=== PATIENT | male | born 1980 | race Caucasian/White ===

== ENCOUNTER 2023-05-04 19:36 | Emergency (ER) | payer BC, SELFPAY ==
[2023-05-04 19:37] VITALS: BP 135/81; PULSE 94; RESP 18; TEMP 36.6; O2SAT 99; BMI 24.0
--- NOTE | 2023-05-04 20:04 | RAD_ITS ---
STUDY: X-RAY - UNILATERAL RIBS ( LEFT ) WITH CHEST REASON FOR EXAM: Male, 43 years old. pain TECHNIQUE - RIBS: 3 view(s) of the ribs. TECHNIQUE - CHEST: Single PA view of the chest. COMPARISON: None. FINDINGS - RIBS: Normal visualized ribs without a demonstrated fracture. FINDINGS - CHEST: The lungs are clear and expanded. There is no demonstrated pleural abnormality. Normal size heart. Normal mediastinum and adis. Normal visualized pulmonary arteries. Normal visualized aortic arch and descending thoracic aorta. There is a dextroscoliosis of the thoracic spine. Normal visualized ribs, clavicles, and shoulders. There is no demonstrated abnormality of the visualized soft tissue structures of the upper abdomen. RAD/Ribs Uni Min 3V w/PA Chest IMPRESSION: RIBS: Normal x-ray examination of the ribs. CHEST: Normal x-ray examination of the chest. Electronically Signed: Cruz Alicea MD at 20:47 EDT ,
--- NOTE | 2023-05-04 20:13 | RAD_ITS ---
STUDY: X-RAY - LEFT SHOULDER REASON FOR EXAM: Male, 43 years old. pain TECHNIQUE: 4 view(s) of the shoulder. COMPARISON: None. FINDINGS: Normal glenohumeral articulation. Normal acromioclavicular joint. Normal acromion. Normal humeral head and visualized proximal humerus. The soft tissue structures are unremarkable. Normal visualized pulmonary apex. RAD/Shoulder min 2 Views IMPRESSION: Normal x-ray examination of the shoulder. Electronically Signed: Cruz Alicea MD at 20:45 EDT ,
--- NOTE | 2023-05-04 21:12 | EDS_ITS ---
HPI History of Present Illness Chief Complaint: Upper Extremity Injury Informant: patient and spouse/S.O. Narrative Narrative: Ambidextrous 43-year-old male states he has been having left anterior shoulder pain for the past month and a half, he was seen in an ER and prescribed naproxen about 3 or so weeks ago, he took it for 10 days and it really helped, and a week or so later his pain started gradually worsening again to the point where it was before. He denies any new symptoms. No numbness or tingling. Denies any injury, it hurts to lie his left shoulder, and he states he had a rotator cuff tear in the past, this was tender 15 years ago in the same shoulder verified by MRI, that was treated by cortisone injection by his PCP at that time. 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 He states it currently hurts to move especially with left upper extremity overhead movements, as well as with coughing but not simply with taking a deep breath. Denies any history of DVT or PE, no recent leg pain or swelling, no travel out of the region or recent hospitalization or surgery. PFSH PFSH no medical history Home Medications meloxicam 15 mg tablet 15 mg PO DAILY #30 tabs 05/04/23 [Rx Last Taken Unknown] Allergy/AdvReac Type Severity Reaction Status Date / Time No Known Allergies Allergy Verified 05/04/23 19:37 Social History Smoking Status: Current every day smoker tobacco type: cigarettes ROS ROS ED Constitutional Constitutional ED: Denies chills or fever(s) Musculoskeletal Musculoskeletal: Reports extremity pain; Denies neck pain Integumentary Denies Abrasions, rash or wounds Neurologic Neurologic: Denies paresthesias or weakness EXAM Physical Exam Const Vital Signs: 05/04/23 19:37 Temperature 98 F Temperature Source Temporal Pulse Rate 94 Respiratory Rate 18 Blood Pressure 135/81 H Blood Pressure Mean 99 Pulse Ox 99 Oxygen Delivery Method Room Air Positive well nourished and well developed General Appearance ED: well developed and NAD Neck full ROM and supple Chest Wall Chest Narrative: Patient is reproducible tenderness at the maximum point is actually in the chest wall just below the left clavicle, medial to the coracoid process where he is very mildly tender. He has full range of motion of the shoulder without difficulty, except limited at extremes of flexion up over his head, with his elbow down at his side he can externally internally rotate without any apparent difficulty. There is no subacromial tenderness or proximal humeral tenderness. No acromioclavicular tenderness or separation/swelling. No Virchow's nodes or other lymphadenopathy around the neck. Resp normal respiratory effort and clear to auscultation bilaterally Cardio regular rate, regular rhythm and no murmurs Rate: Negative for tachycardic Back/Spine normal ROM and normal to inspection Extremity normal to inspection Extremity Narrative: See above with regard to the left shoulder all other joints move without any difficulty or limitation. Neuro oriented x3, no focal motor deficits and no sensory deficits noted Sensorium / Orientation: alert Psych mental status grossly normal and thought process normal Skin no wounds Rashes: no rashes MDM MDM MDM Narrative Medical decision making narrative: Four-view x-ray series of the left rib cage including a PA chest as well as three-view x-ray of the left shoulder both negative on my interpretation, radiology in agreement. Patient reassured, I think he has an appointment with orthopedics he thinks at [facility] about 2 or 3 weeks from now, I think it would be reasonable to give him a work note for tomorrow which she is requesting, and prescribe him meloxicam which will be safer for him to take daily for the next month, and follow-up with orthopedics as scheduled. Questionable whether this is actually shoulder girdle problem or not. Radiography Diagnostic Testing: Clinical Impression(s) from Imaging Studies Ribs w/Chest X-Ray 05/04/23 20:04 IMPRESSION: RIBS: Normal x-ray examination of the ribs. CHEST: Normal x-ray examination of the chest. Electronically Signed: Cruz Alicea MD at 20:47 EDT , Shoulder X-Ray 05/04/23 20:13 IMPRESSION: Normal x-ray examination of the shoulder. Electronically Signed: Cruz Alicea MD at 20:45 EDT , Discharge Plan Triage Chief Complaint: Upper Extremity Injury ED Provider: Dennis Bedolla Dx/Rx/DC Orders Clinical Impression: Acute pain of left shoulder, Left-sided chest wall pain Instructions: ED Chest Wall Pain, Costochondritis Prescriptions: New meloxicam 15 mg tablet 15 mg PO DAILY Qty: 30 0RF Stand Alone Forms: ED Work / School Excuse Primary Care Provider: Care Physician,No Primary Referrals: Doctor,Your [Non-Staff] - Keep Omar appointment (ortho) Disposition Disposition: Home, Self Care Discharge Date/Time: 05/04/23 21:40
[2023-05-04] MEDS: Naproxen 250 MG Tablet 500 MG PO (21:39)
== END 2023-05-04 21:40 | disposition home or self-care (01) ==
PROVIDERS: Emergency Provider Emergency Medicine; Visit Provider Emergency Medicine
DX: R07.89 Other chest pain (principal); F17.210 Nicotine dependence, cigarettes, uncomplicated; M25.512 Pain in left shoulder
CPT/HCPCS: 71101; 73030; 99282